=== PATIENT | male | born 2000 | race Caucasian/White ===

== ENCOUNTER 2025-02-13 14:32 | Emergency (ER) | payer BC, SELFPAY ==
[2025-02-13 14:38] VITALS: BP 161/79; PULSE 92; RESP 20; TEMP 37; O2SAT 97; BMI 33.6
--- NOTE | 2025-02-13 14:42 | ED_ITS ---
HPI - General Adult General Chief complaint: Wound/Laceration Stated complaint: cut on hand Time Seen by Provider: 02/13/25 14:44 Source: patient, RN notes reviewed and old records reviewed Mode of arrival: ambulatory Limitations: no limitations History of Present Illness ED Provider: [facility] narrative: Patient is a 25 year-old male presenting to the ED with lacerations to left hand. Was washing dishes and didn't realize there was a knife in the sink, and accidentally cut his hand. Lacerations to palm at level of 5th MCP and 4th finger, dorsal aspect, just proximal to DIP. Complaining of some numbness to fifth finger of left hand, but has full ROM. Unsure last Tdap. MD complaint: lacerations of left hand Related Data Allergies Allergy/AdvReac Type Severity Reaction Status Date / Time No Known Allergies Allergy Verified 02/13/25 14:45 Review of Systems 2 Review of Systems: As per HPI Yes all other systems are reviewed and are negative Constitutional: Constitutional: Reports as per HPI Physical Exam ED Vital Signs: Vital signs have been reviewed and appear to be correct. Blood pressure normal. Heart rate normal. Respiratory rate normal. Temperature normal. Oxygen saturation normal. Const General: cooperative, healthy appearing and no acute distress Orientation/consciousness: oriented to person, oriented to place, oriented to time and patient oriented x3 Limitations: no limitations HENMT Head: Yes normocephalic and Yes atraumatic Ears: external ears normal General nose exam: Normal external nose present Face and sinus: Yes face symmetric Mouth: oropharynx normal and moist mucous membranes Throat: Yes uvula midline Eyes Pupils: Equal, round and reactive pupils present Neck Neck: Yes normal visual inspection and Yes supple Resp Effort & Inspection: normal respiratory effort and able to speak in complete sentences Auscultation: clear to auscultation bilaterally Cardio Rate: regular rate Rhythm: regular rhythm Heart sounds: S1 normal heart sound present and S2 normal heart sound present GI Palpation (GI): Soft to palpation and nontender Auscultation: normoactive bowel sounds General: Yes no CVA tenderness Back/Spine/Pelvis Back: no CVA tenderness Skin General skin exam: elasticity normal and turgor normal Neuro General: oriented to person, oriented to place, oriented to time, patient oriented x3, moves all extremities, no focal motor deficits and CN's II-XI intact bilaterally Cranial nerves: Yes Equal, round and reactive pupils present Cognition (Neuro): normal cognition Extrem General: Yes full ROM, Yes no pedal edema and Yes no calf tenderness Left upper extremity: hand Details: normal capillary refill, neuromotor exam normal, neurosensory exam normal, tendon exam normal, vascular exam Details: radial pulse present, ulnar pulse present and normal capillary refill, normal ROM of fingers and laceration 4th digit dorsal aspect distal Details: linear, superficial, with motor nerve function intact and with sensation intact, palm palmar aspect proximal Details: linear, involving subcutaneous tissue, with motor nerve function intact and with sensation intact Hand/finger images: 2 1. 1cm c-shaped laceration 2. 2.5cm laceration into subcutaneous tissue Psych Mental Status: mental status grossly normal Affect: normal affect Thought process: Normal thought process present Procedures Laceration Laceration 1: Site: hand Side (If applicable): left Size (cm): 2.5 Description: linear Depth: simple, single layer Local Anesthetic: lidocaine 1% Amount of anesthesia used (mL): 5 Pre-repair: wound explored, irrigated extensively and deep structures intact Skin layer closed with: other (prolene) Size (cm): 5-0 Number of sutures: 8 Technique: simple, interrupted Laceration 2: Site: hand Side (If applicable): left (4th finger proximal to DIP) Size (cm): 1 Description: linear Depth: simple, single layer Local Anesthetic: lidocaine 1% Amount of anesthesia used (mL): 1 Pre-repair: wound explored, irrigated extensively and deep structures intact Skin layer closed with: other (prolene) Size (cm): 5-0 Number of sutures: 4 Technique: simple, interrupted Medical Decision Making Medical Decision Making MDM Narrative: Patient is a 25 year-old male presenting to the ED with lacerations to left hand. On exam patient is awake, A+Ox3, VS WNL, afebrile, normal neurological exam without focal deficits, physical exam findings as above. Given reported symptoms and physical exam findings, initial differential includes but is not limited to laceration of finger, laceration of hand. Lacerations repaired as per procedure notes, patient tolerated well, bandaged. Tdap updated. Wound care instructions and return precautions disucssed at bedside. Sutures out in 7-10days. Patient verbalized understanding of and agreement with plan. Differential Diagnosis Differential Diagnoses: The differential diagnosis associated with the presentation includes [facility] Admission/Observation Consideration of admission/observation: Escalation of care including admission/observation considered Patient would have been admitted to the hospital and transferred to appropriate facility had their clinical presentation warranted hospital admission. External Record Review External record reviewed: Inpatient record, Office record and Outpatient record Discharge Plan Discharge Clinical Impression: Laceration of hand, left Qualifiers: Encounter type: initial encounter Foreign body presence: without foreign body Q ualified Code(s): S61.412A - Laceration without foreign body of left hand, initial encounter Instructions: Care For Your Stitches (DC), Laceration (DC), Stitches Removal (ED) Additional Instructions: You have been evaluated in the emergency department today for lacerations to your left hand. Your lacerations were repaired in the emergency department with 12 total sutures (8 and 4). Please keep the area surrounding the lacerations clean and dry and keep dressings in place for the next 24 hours. After that please change the dressings and assess the wounds daily. Do not submerge the wounds in water until the stitches have been removed and the wounds have fully healed (no washing dishes, swimming, hot tubs, etc. and ESPECIALLY no outdoor water). Keep the areas out of direct sunlight for the next 6 months to help prevent scarring. You should have the sutures removed in 7-10 days. Your Tdap (tetanus vaccine) was updated today. If you develop fever, redness, swelling at the site of your laceration, or thick yellow drainage please come back to the ER for a wound check. Print Language: Swedish
[2025-02-13] MEDS: Lidocaine HCl 1 % MPF 5 ML VIAL INFILTRATI (15:04)
[2025-02-13] MEDS: Diphth,Pertus(ACell),Tet Adult 0.5 ML SYRINGE IM (15:17)
--- OUTSIDE RECORDS SUMMARY | 2025-02-13 15:36 | XMS_ITS | Clinical Summary ---
Author Organization [facility] Address [address] [place], [place] [id number] Phone Care Team Providers Care Animal Rehabilitator Name Role Phone Unknown, Unknown Primary Care Provider Zaid whalen Immunizations Immunization Administration Dates Next Due COVID-19 (Pre-02/18) Pfizer Vaccine, mRNA, PF ,09/22/2020 COVID-19 (Pre) Pfizer Vaccine, mRNA, ledy-sucrose, PF 07/12/2021 Social History Tobacco Use Types Packs/Day Years Used Date Smoking Tobacco: Never Assessed Education Answer Date Recorded Are you interested in more education? Not on pau e 08/24/2022 Are you concerned about learning? Not on file 08/24/2022 No 08/24/2022 No 08/24/2022 Digital Access Answer Date Recorded No 09/22/2022 No 09/22/2022 No 09/22/2022 Reliable internet access at home? Not on file 09/22/2022 Device with a working camera? Not on file Sex and Gender Information Value Date Recorded Sex Assigned at Not on file Legal Sex Male 11:08 AM EDT Gender Identity Not on file Sexual Orientation Not on file Plan of Treatment Health Maintenance Due Date Last Done Comments Adult Td,Tdap Booster 1999 DEPRESSION SCREENING 2011 SMOKING Hx and SMOKELESS TOBACCO SCREENING 01/22/2012 HPV VACCINES (1 - Male 3-dos e series) 2014 HEPATITIS C SCREENING 2017 HIV ONE-TIME SCREENING (18-6 5 YEARS) 2017 INFLUENZA VACCINE (#1) 2024 COVID-19 VACCINE (4 - 2025-2 6 season) 2024 07/12/2021, 10/13/2020, 09/22/2020 HEPATITIS A VACCINES Aged Out No long er eligible based on patient's age to complete this topic HIB VACCINES Aged Out No longer eligi ble based on patient's age to complete this topic MENINGOCOCCAL VACCINES (ACWY) Aged Out No longer eligible based on patient's age to complete this topic MENINGOCOCCAL VACCINES (B) Aged Out N o longer eligible based on patient's age to complete this topic PNEUMOCOCCAL VACCINES (0-49 years) Aged Out No longer eligible b ased on patient's age to complete this topic Medical Devices Not on file Insurance [facility] [employer] Member Subscriber Plan / Payer (Ef fective 2018-Present) Name:HarishishmaelChris Member ID:[id number] #[id number], [id number] #[id number] Relation to Subscriber:Self Name:Harishishmael Chris Subscriber ID:[id number] #[id number], [id number] #[id number] Payer ID:Not on file Group ID:RID #[id number] Type:Indemnity Address: [address] [place] [address] ATTN: [place] [address] [employer] Member Subscriber Plan / Payer (Ef fective 2018-Present) Name:Chris Lagos Member ID:[id number] #[id number], [id number] #[id number] Relation to Subscriber:Self Name:Harishishmael Chris Subscriber ID:[id number] #[id number], [id number] #[id number] Payer ID:Not on file Group ID:RID [id number] Type:Indemnity Address: [address] [place] [address] ATTN: [place] [address] Care Teams Animal Rehabilitator Relationship Specialty Start Date End Date Unknown, Unknown, PCP - General 09/24/18 Additional Source Comments The information contained in this document represents components of the legal health record. It is not the complete legal health record.[facility]
[2025-02-13 16:18] VITALS: BP 161/79; PULSE 92; RESP 20; TEMP 37; O2SAT 97
== END 2025-02-13 16:19 | disposition home or self-care (01) ==
PROVIDERS: Emergency Provider Emergency Medicine; PCP Family Medicine
DX: S61.412A Laceration without foreign body of left hand, initial encounter (principal); M79.642 Pain in left hand; W26.0XXA Contact with knife, initial encounter; Y93.G1 Activity, food preparation and clean up; Y92.090 Kitchen in other non-institutional residence as the place of occurrence of the external cause; Y99.8 Other external cause status; Z23 Encounter for immunization
CPT/HCPCS: 12002; 90471; 90715; 99284; J2003